=== PATIENT | male | born 1965 | race Asian ===

== ENCOUNTER → 2020-10-30 10:45 | Outpatient (CLI) | payer OTHER, SELFPAY ==
--- NOTE | ~2020-10-30 | US_ITS ---
US abdomen complete EXAMINATION: US Abdomen Complete INDICATION: Liver disease PROCEDURE: Realtime High Resolution abdomen ultrasound. COMPARISON: No prior studies for comparison FINDINGS: Gallbladder within normal limits. No gallstones, pericholecystic fluid, gallbladder wall t hickening or biliary dilatation. Common bile duct measures 3 mm. Liver echotexture is increased, consistent with fatty infiltration. There are multiple liver cysts, l argest measuring 5.5 cm.. Pancreas within normal limits. Pancreatic tail is obscured by bowel gas. Spleen is unremarkeable. Renal echotexture is within normal limits bilaterally without hydronephrosi s, contour deforming mass or renal stone. Right kidney measures 10.4 cm. Left kidney measures 12.3 cm . Visualized aspects of the aorta and IVC are not well visualized due to bowel gas. Portal vein is grady nt. No sonographic Segovia's sign indicated by the technologist. IMPRESSION: 1: Hepatic steatosis with liver cysts. Reviewed, dictated and finalized at location B.
== END ==
PROVIDERS: PCP Emergency Medicine; Visit Provider Emergency Medicine
DX: K76.9 Liver disease, unspecified (principal)
CPT/HCPCS: 76700

== ENCOUNTER 2021-02-12 09:15 | Outpatient (RCR) | payer OTHER, SELFPAY ==
[2021-01-05 12:42] VITALS: BMI 26.4
[2021-01-05 12:47] VITALS: BMI 26.4
== END 2021-03-08 12:03 | disposition home or self-care (01) ==
LOC: ANHDMC 09:15
PROVIDERS: PCP Emergency Medicine; Referring Provider Emergency Medicine; Visit Provider Emergency Medicine
DX: E11.9 Type 2 diabetes mellitus without complications (principal); Z71.89 Other specified counseling
CPT/HCPCS: 97802; G0108

== ENCOUNTER 2024-07-01 00:09 | Day surgery (SDC) | payer OTHER, SELFPAY ==
[2024-06-17 14:27] VITALS: BMI 25.0
[2024-07-01 07:00] VITALS: BP 95/43; PULSE 64; RESP 18; TEMP 36.1; O2SAT 97
[2024-07-01] MEDS: LACTATED RINGERS 1,000 ML 150 ML IV CONT (07:08)
--- NOTE | 2024-07-01 07:28 | WPDANESEPPF ---
Anes - Initial Pre Proc Eval Procedure: Operation Date: 07/01/24 08:00 Proposed Procedures p Screening Colonoscopy - Olvin Tena MD Date/Time: 07/01/24 07:28 Surgeon: Olvin Tena MD Pre Op Diagnosis: screening neoplasm of colon Patient Data Age: 59 Gender: M Height: 1.7 m Weight: 74.2 kg Last Vital Signs Temp 97 F L 07/01/24 07:00 Pulse 64 07/01/24 07:00 Resp 18 07/01/24 07:00 BP 95/43 L 07/01/24 07:00 Pulse Ox 97 07/01/24 07:00 O2 Del Method Room Air 07/01/24 07:00 Allergies Allergy/AdvReac Type Severity Reaction Status Date / Time No Known Allergies Allergy Verified 07/01/24 06:59 Home Medications Medication Instructions Recorded Confirmed Type No Home Medications 06/17/24 07/01/24 History Patient hx anesthesia problems: none Family hx anesthesia problems: none Results Review: All pre-operative results and documents have been reviewed as part of the pre-operative evaluation. [facility] Social History Social History Alcohol intake: current Drinks per week: 3 Living arrangements: with family Spiritual care concerns: No Anes - Eval Final PreProcedure Day of Procedure 07/01/24 07:28 Patient weight: normal Heart: regular rate and rhythm Lungs: clear to auscultation Airway: Mallampati scale class II Neurological: alert and oriented Last oral intake: >/= 8 hours ASA classification: II Emergent: no Anesthetic plan: proceed Anesthesia type and monitoring: general GIVS and standard monitoring Results Review: All pre-operative results and documents have been reviewed as part of the pre-operative evaluation. Informed Consent: The patient's anesthetic plan and its attendant risks and benefits were discussed with the patient/family/POA. Questions were solicited and answers provided to the satisfaction of the patient/family/POA.
--- NOTE | 2024-07-01 08:01 | PM.IMHP ---
H&P: HPI History of Present Illness Date/Time: 07/01/24 08:01 Chief Complaint: History of colon polyps Narrative: The patient has a history of colonic polyps, the last colonoscopy was more than 5 years ago Review of Systems Review of Systems: All systems reviewed & are unremarkable except as noted in HPI and below PMFSH Social History Social History Alcohol intake: current Drinks per week: 3 Living arrangements: with family Spiritual care concerns: No Meds Home Medications and Allergies Home Medications Medication Instructions Recorded Confirmed Type No Home Medications 06/17/24 07/01/24 History Allergies Allergy/AdvReac Type Severity Reaction Status Date / Time No Known Allergies Allergy Verified 07/01/24 06:59 Vital Signs Vital Signs - 24 hr 07/01/24 07:00 Temperature 97 F L Pulse Rate 64 Respiratory Rate 18 Blood Pressure 95/43 L Pulse Oximetry 97 Oxygen Delivery Room Air Exam Const: General: cooperative and healthy appearing Resp: Effort & Inspection: normal respiratory effort and able to speak in complete sentences Auscultation: clear to auscultation bilaterally Cardio: Rate: regular rate Rhythm: regular rhythm GI: Inspection: normal to inspection GI Palp: No No hepatosplenomegaly present Auscultation: normal bowel sounds Rectal Exam: deferred Skin: General skin exam: normal color Psych: Appearance: grossly normal Mental Status: mental status grossly normal Assessment and Plan Assessment and plan (1) History of colonic polyps: Code(s): Z86.0100 - Personal history of colon polyps, unspecified Status: Acute Assessment and Plan: The patient is deemed a good candidate for the procedure. Consent signed. Will proceed.
[2024-07-01 08:35] VITALS: BP 93/62; PULSE 59; RESP 12; O2SAT 98
[2024-07-01 08:45] VITALS: BP 103/65; PULSE 64; RESP 19; O2SAT 100
[2024-07-01 08:55] VITALS: BP 108/75; PULSE 60; RESP 18; O2SAT 100
== END 2024-07-01 09:04 | disposition home or self-care (01) ==
PROVIDERS: PCP Emergency Medicine; Visit Provider Internal Medicine Gastroenterology
PROC: 0DJD8ZZ Inspection of Lower Intestinal Tract, Via Natural or Artificial Opening Endoscopic (ICD-10-PCS; CPT 45378; principal; 2024-07-01 08:00)
DX: Z12.11 Encounter for screening for malignant neoplasm of colon (principal); Z86.0100 Personal history of colon polyps, unspecified
CPT/HCPCS: 45378; J2003; J2704; J7120

== ENCOUNTER 2024-12-26 00:13 | Emergency (ER) | payer OTHER, SELFPAY ==
--- NOTE | ~2024-12-26 | CT_ITS ---
Non-contrast Head CT History: Altered mental status Technique: Axial non-contrast imaging of the brain was performed. Dose reduction technique was used on this scan by utilizing automated exposure control and iterative reconstruction technique. The dose -length product (DLP) was 681.00 mGy-cm. Findings: There is no evidence of intracranial hemorrhage, mass lesion, or acute infarct. Brain par enchyma appears normal. The ventricles and subarachnoid spaces are normal in size. The calvarium ap pears normal. The visualized paranasal sinuses and mastoid air cells are clear. Impression: No significant abnormality seen. Reviewed, dictated and finalized at location . Impression: No significant abnormality seen.
[2024-12-26 00:16] VITALS: BP 98/71; PULSE 53; RESP 19; TEMP 36.9; O2SAT 97
--- OUTSIDE RECORDS SUMMARY | 2024-12-26 00:18 | XMS_ITS | Continuity of Care Document ---
Author Organization [facility] Address [address] [place] [address] [place] [address] Phone Care Team Providers Care Business Support Specialist Name Role Phone Jim Quintanilla MD Unavailable Unavailable Allergies, Adverse Reactions, Alerts Substance Reaction Status Criticality No Known Allergies Active No Inform ation Procedures Procedure Date OFFICE/OUTPATIENT VISIT, EST OFFICE/OUTPATIENT VISIT, EST PREV VISIT, EST, AGE 40-64 OFFICE/OUTPATIENT VISIT, EST PREV VISIT, EST, AGE 40-64 OFFICE/OUTPATIENT VISIT, EST OFFICE/OUTPATIENT VISIT, EST PREV VISIT, EST, AGE 40-64 OFFICE/OUTPATIENT VISIT, EST OFFICE/OUTPATIENT VISIT, EST OFFICE/OUTPATIENT VISIT, EST OFFICE/OUTPATIENT VISIT, EST OFFICE/OUTPATIENT VISIT, EST OFFICE/OUTPATIENT VISIT, EST OFFICE/OUTPATIENT VISIT, EST PREV VISIT, EST, AGE 40-64 OFFICE/OUTPATIENT VISIT, EST OFFICE/OUTPATIENT VISIT, EST PREV VISIT, EST, AGE 40-64 OFFICE/OUTPATIENT VISIT, EST OFFICE/OUTPATIENT VISIT, EST PREV VISIT, EST, AGE 40-64 OFFICE/OUTPATIENT VISIT, EST OFFICE/OUTPATIENT VISIT, EST PREV VISIT, EST, AGE 40-64 OFFICE/OUTPATIENT VISIT, EST Advance Directives Directive Yes / No Effective Date File Name No Information Encounters Encounter Description Practice Location Reason(s) For Visit Diagnoses Date Provider Providers Copied on Encounter OFFICE/OUTPA TIENT VISIT, EST [facility], [address], [place], [place], [address], [place] tel:[phone] [facility] DM (chief complaint) HLP (chief complaint) MCV (chief complaint) Type 2 diabetes mellitus without complicationsMixed hyperlipidemiaFatty liverOther abnormality of red blood cells 5 Dwight Fernandez. [address], [place], [place], [address] , [place]. tel:[phone] OFFICE/OUTPA TIENT VISIT, EST [facility], [address], [place], [place], [address], [place] tel:[phone] [facility] DM (chief complaint) HLP (chief complaint) MCV (chief complaint) Type 2 diabetes mellitus with diabetic nephropathyMixed hyperlipidemiaOther specified abnormal findings of blood chemistry 4 Dwight Fernandez. [address], [place], [place], [address] , [place]. tel:[phone] PREV VISIT, EST, AGE 40-63 [facility], [address], [place], [place], [address], [place] tel:[phone] [facility] physical (chief complaint) Encounter for general adult medical exam w abnormal findingsFatty liverMixed hyperlipidemiaObstr uctive sleep apnea hypopneaType 2 diabetes mellitus without complicationsAbnorm al weight gain 4 Dwight Fernandez. [address], [place], [place], [address] , [place]. tel:[phone] PREV VISIT, EST, AGE 40-63 [facility], [address], [place], [place], [address], [place] tel:[phone] [facility] physical (chief complaint) Type 2 diabetes mellitus without complicationsMixed hyperlipidemiaEncou nter for general adult medical exam w abnormal findingsFatty liverPrimary central sleep apnea 3 Dwight Fernandez. [address], [place], [place], [address] , [place]. tel:[phone] OFFICE/OUTPA TIENT VISIT, [facility], [address], [place], [place], [address], [place] tel:[phone] [facility] DM (chief complaint) HLP (chief complaint) Mixed hyperlipidemiaType 2 diabetes mellitus without complications 2 Dwight Fernandez. [address], [place], [place], [address] , [place]. [phone] PREV VISIT, EST, AGE 40-63 [facility], [address], [place], [place], [address], [place] tel:[phone] [facility] physical (chief complaint) Encounter for general adult medical exam w abnormal findingsHyperlipide miaType 2 diabetes mellitus with diabetic nephropathyFatty liverAllergic contact dermatitis due to plants, except food 2 Dwight Fernandez. [address], [place], [place], [address] , [place]. [phone] OFFICE/OUTPA TIENT VISIT, EST [facility], [address], [place], [place], [address], [place] tel:[phone] [facility] DM (chief complaint) HLP (chief complaint) sleep apnea1 (chief complaint) weight loss1 (chief complaint) Sleep apneaHyperlipidemia Type 2 diabetes mellitus with diabetic nephropathyAbnormal weight lossEncounter for screening for malignant neoplasm of prostate 1 Dwight Fernandez. [address], [place], [place], [address] , [place]. tel:[phone] OFFICE/OUTPA TIENT VISIT, [facility], [address], [place], [place], [address], [place] tel:[phone] [facility] fatty liver1 (chief complaint) DM (chief complaint) polycythem ia1 (chief complaint) HLP (chief complaint) sleep apnea1 (chief complaint) low bp (chief complaint) Secondary polycythemiaSleep apneaType 2 diabetes mellitus with diabetic nephropathyFatty liverHyperlipidemia HypotensionEncounte r for screening for malignant neoplasm of colon 1 Dwight Oconnell [address], [place], [place], [address] , [place]. [phone] OFFICE/OUTPA TIENT VISIT, [facility], [address], [place], [place], [address], [place] tel:[phone] [facility] sleep apnea1 (chief complaint) Sleep apnea 1 Dwight Oconnell [address], [place], [place], [address] , [place]. [phone] OFFICE/OUTPA TIENT VISIT, [facility], [address], [place], [place], [address], [place] tel:[phone] [facility] sleep apnea1 (chief complaint) Dm (chief complaint) polycythem ia1 (chief complaint) weight loss1 (chief complaint) Secondary polycythemiaSleep apneaAbnormal weight lossType 2 diabetes mellitus with diabetic nephropathy 1 Dwight Oconnell [address], [place], [place], [address] , [place]. [phone] OFFICE/OUTPA TIENT VISIT, [facility], [address], [place], [place], [address], [place] tel:[phone] [facility] DM (chief complaint) sleep apnea1 (chief complaint) HLP (chief complaint) Type 2 diabetes mellitus with diabetic nephropathySecondar y polycythemiaFatty liverSleep apneaHyperlipidemia 1 Dwight Oconnell [address], [place], [place], [address] , [place]. tel:[phone] Referring Provider: Aidan [address], [place], [place], [address]. tel:[phone] OFFICE/OUTPA TIENT VISIT, [facility], [address], [place], [address], [place] tel:[phone] [facility] polycythem ia1 (chief complaint) DM (chief complaint) HLP (chief complaint) Type 2 diabetes mellitus with diabetic nephropathyLiver diseaseHyperlipidem iaSecondary polycythemiaFatigue Oct- 1 Dwight Fernandez. [address], [place], [place], [address] , [place]. tel:[phone] Referring Provider: Jim Quintanilla, [address], [place], [place], [address]. tel:[phone] PREV VISIT, EST, AGE 40-63 [facility], [address], [place], [place], [address], [place] tel:[phone] [facility] physical (chief complaint) Encounter for general adult medical exam w abnormal findingsHyperlipide miaHyperglycemiaLiv er diseaseTinnitus, bilateralCandidiasi s Oct- 1 Dwight Fernandez. [address], [place], [place], [address] , [place]. tel:[phone] Referring Provider: Aidan [address], [place], [place], [address]. tel:[phone] OFFICE/OUTPA TIENT VISIT, EST [facility], [address], [place], [place], [address], [place] tel:[phone] [facility] HLP (chief complaint) DM (chief complaint) LFT (chief complaint) Body mass index (BMI) 30.0-30.9, adultLiver diseaseHyperlipidem iaType 2 diabetes mellitus without complications 8 Dwight Fernandez. [address], [place], [place], [address] , [place]. tel:[phone] Referring Provider: Aidan [address], [place], [place], [address]. tel:[phone] PREV VISIT, EST, AGE 40-63 [facility], [address], [place], [place], [address], [place] tel:[phone] [facility] PHysical (chief complaint) Encounter for general adult medical exam w abnormal findingsHyperlipide miaHyperglycemiaAbn ormal weight gainNevus, non-neoplastic 8 Dwight Fernandez. [address], [place], [place], [address] , [place]. [phone] Referring Provider: Aiadn [address]th [address], [place], [place], [address]. tel:[phone] OFFICE/OUTPA TIENT VISIT, EST [facility], [address], [place], [place], [address], [place] tel:[phone] [facility] HLP (chief complaint) glucose (chief complaint) vitamin D (chief complaint) Dietary surveillance and counselingOther and unspecified hyperlipidemiaMetab olic SyndromeUnspecified vitamin d deficiency 4 Dwight Fernandez. [address], [place], [place], [address] , [place]. tel:[phone] Referring Provider: Aidan Barth [address], [place], [place], [address]. tel:[phone] PREV VISIT, EST, AGE 40-63 [facility], [address], [place], [place], [address], [place] tel:[phone] [facility] physical (chief complaint) Dietary surveillance and counselingRoutine Medical ExamStreptococcal sore throatOther and unspecified hyperlipidemiaRouti ne Medical Exam 4 Dwight Fernandez. [address], [place], [place], [address] , [place]. tel:[phone] Referring Provider: Aidan Barth [address], [place], [place], [address]. tel:[phone] OFFICE/OUTPA TIENT VISIT, EST [facility], [address], [place], [place], [address], [place] tel:[phone] [facility] HLP (chief complaint) vitamin D (chief complaint) Dietary surveillance and counselingOther and unspecified hyperlipidemiaUnspe cified vitamin d deficiency 3 Dwight Fernandez. [address] [facility] [place] [facility] [address], [place], [place], [address] , [place]. [phone] Referring Provider: [facility] [place], [place], [address]. tel:[phone] PREV VISIT, EST, AGE [age] [facility], [address], [place], [place], [address], [phone] [facility] cough (chief complaint) physical (chief complaint) Dietary surveillance and counselingBronchiti s, AcuteRoutine Medical ExamOther and unspecified hyperlipidemiaRouti ne Medical Exam 2 Dwight Fernandez. [address], [facility] A, [place], [place], [address] , [place]. [phone] Referring Provider: Aidan Barth [place], [address]. tel:[phone] Family History Family Member Type Diagnosis Age At Onset Mother Problem (finding) Alive and well Brother Problem (finding) Alive and well Father Problem (finding) Alive and well Payers Payer name Insurance type Covered green party ID Authoriza timedina(s) [employer] O CI [id number] Social History Type Description Quantity Date Captured Comments Alcohol Use Details Caffeine Use Details Unknown Tobacco Use Status Current non-smoker Smoking Status Never smoker Sex Male Vital Signs Date / Time: Height Weight BMI Pulse Rate Blood Pressure Temperature Respiratory Rate Body Surface Area Head Circumference BMI percentile Pulse Ox Inhaled Ox 9:09 AM 65.75 in 166.40 lbs 27.0 6 kg/m eter (2) 73 /min 120/80 mm[Hg] 98.3 F 16 /min Chief Complaint And Reason For Visit From encounter dated '10/23/2024 09:06'. DM (chief complaint). Description: Pt has DM, which is diet controlled. His A1c and glucose are improving Pt denies any polyuria, polydipsia. HLP (chief complaint). Description: Pt has history of HLP . Pt has been working on diet and his lipid is ok now. MCV (chief complaint). Description: pt has enlarged MCV. Pt has been drinking hard liquor nightly .Pt denies any abd pain Plan Of Treatment Date Type Action Status Goal Special diet education compl eted Goal Special diet education compl eted Referral Ordered: Otolaryngology (related to Sleep apnea) ordered Referral Ordered: Physical Therapy (related to Type 2 diabetes mellitus with diabetic nephropathy) ordered Referral Referred To: Physical Therapy Ordered: Referrals: Physical Therapy. Evaluate and treat ordered Referral Ordered: SLEEP STUDY, ATTENDED ordered Referral Ordered: Otolaryngology (related to Tinnitus, bilateral) ordered Referral Ordered: Referrals: Otolaryngology. Evaluate and treat ordered Referral Ordered: US EXAM, ABDOM, COMPLETE ordered Referral Ordered: Fabian Puentes -[facility] : Surgery (related to Nevus, non-neoplastic) ordered Referral Referred To: Fabian Puentes [address] [place], [place] [id number] Ordered: Referrals: [facility]opathic [facility] Osteopathic Physicians : Surgery. Fabian Puentes. Evaluate and treat ordered Referral Ordered: COLONOSCOPY AND BIOPSY ordered History Of Present Illness Encounter Date Complaint History Of Prese nt Illness DM Pt has DM, which is diet controlled. His A1c and glucose are improving Pt denies any polyuria, polydipsia. HLP Pt has history o f HLP . Pt has been working on diet and his lipid is ok now. MCV pt has enlarged MCV. Pt has been drinking hard liquor nightly .Pt denies any abd pain MCV Pt has borderlin e high MCV. Pt has been drinking more alcohol lately DM Pt has borderlin e DM. Pt does not take metformin Pt has not been diet and exercising and he went back to [place] recently and he ate poorly and drank more alcohol as well. HLP Pt has HLP Pt peñaloza s not diet and exercising recently physical Pt needs annual physical. pt has Dm and he is diet controlled. Pt has history of HLP Pt is working on diet and exercise. Pt has sleep apnea He denies any snoring or fatigue. pt does not use cpap. Pt overall feels well. His glucose at home is around 95. physical Pt needs annual physical. Pt has borderline DM and HLP Pt has been diet controlling for above. Pt stopped metformin and crestor several months ago on his own. Pt overall feels very well. His glucose is around 88. Pt denies any other complaints Pt no long snores or feels fatigue DM Pt has DM pt nicolas es metformin daily and his glucose and A1c are very normal. Pt denies any hypoglycemia Pt denies any polyuria, polydipsia. Pt states that he checks his glucose in the morning and he sometimes skips metformin if BG less than 100. HLP Pt has HLP Pt shilo mcnamara crestor .Pt denies any myalgia. his lipid profile is ok physical Pt needs annual physical pt has DM Pt takes metformin. his glucose is around 100 Pt denies any polyuria, polydipsia Pt denies any neuropathy .Pt has HLP Pt takes crestor Pt denies any myalgia .pt worked in [employer] last week and he notices diffuse itching right arm and spreading shortly after working at [employer] last week and is spreading Pt denies any sob or shortness of breath. Pt vikram any dysphagia. Pt c/o diffuse itching Pt uses OTC steroid topical but did not help DM Pt has DM, pt ta kes metformin and his glucose is around 95. Pt denies any hypoglycemia, polyuria, polydipsia. HLP Pt has HLP .Pt t iraida crestprimitivo and his lipid is ok Pt denies any myalgia. His lipid profile is ok sleep apnea1 Pt has sleep family physician ea. Pt lost some weight and he no longer has any snoring or any fatigue. He did not do the oxygen level at night .He could not tolerate cpap. weight loss1 Pt has been diet and exercise and intentionally losing weight. He denies any nausea, vomiting GERD ,nausea, vomiting, appetite loss, early satiety, etc. Pt vikram any lower GI issue fatty liver1 Pt has fatty kristy er and high ferritin. Pt cut down alcohol and is eating healthier. Pt denies any abd pain or headache polycythemia pt no longer has high hemoglobin and CEASAR is ok. DM Pt has DM ,Pt ta kes metformin and amaryl and he is very motivated with diet and exercise and weight control and he is doing DM education class. he is doing well. His glucose is around 80s. He denies any hypoglycemia. he feels much better overall . HLP Pt has HLP Pt shilo mcnamara crestor and his lipid profile is ok .Pt denies any myalgia sleep apnea1 Pt has mild slee p apnea and oxygen desaturation at night. .he could not tolerate cpap. He returned the cpap He has not followed up with ENT .he states that he feels much better now with better glucose control He denies any headache or fatigue or snoring low bp Pt has borderlin e low bp with losartan. Pt denies any dizziness sleep apnea Pt has mild slee p apnea but with significant oxygen level desat at night. He spend about 16% of sleeping time with oxygen level less than 88 % Pt feels fatigue with cloudy brain during the day time. I told him to make malika with ENT/sleep to discuss above and he has not done that yet. he also returned the CPAP machine on his own. He states that he feels worse with cpap after using it for 2-3 nights and he woke up feeling more cloudy brained with dizziness. sleep apnea Pt has sleep family physician ea with oxygen desaturation. pt has chronic fatigue. Pt received a letter from insurance about approval for the CPAP. Pt states that he has not heard [facility] regarding CPAP set up yet . Dm Pt has DM. Pt ta kes metformin and amaryl and his glucose is consistently around 100. Pt denies any hypoglycemia. Pt denies any neuropathy. Pt feels well overall. polycythemia1 Pt has polycythe nolberto with high ferritin. Pt denies any bone pain weight loss1 Pt has been diet and exercising and intentionally losing weight .Pt denies any appetite loss, nausea, vomiting, early satiety, diarrhea, change of bowel, etc . DM Pt has DM with p roteinuria. Pt started metformin and amaryl last month and he states dontrell this glucose is consistently around 95-100. Pt denies any hypoglycemia. Pt also changed his diet as well. Pt has DM education class scheduled next month. PT denies any vision change. PT denies any neuropathy. Pt takes losartan. His bp is around 120/60 at home. Pt denies any dry cough. pt states that he feels less fatigue and overall better since BG lower sleep apnea1 Pt has mild slee p apnea with significant oxygen desaturation at night. Pt feels fatigue. Pt has mild polycythemia and high ferritin. Pt has fatty liver with cysts. Pt denies any abd pian or jaundice. Pt drinks alcohol socially HLP Pt tolerating cr estor ok Pt denies any myalgia. polycythemia1 Pt has polycythe nolberto and also high ferritin. Pt denies any family history of hemochromatosis. Pt does c/o feeling fatigue and snoring loudly at night HLP Pt has HLP, whic h is worse than in the past. Pt did not want to try statin in the past. he has been eating poorly. DM Pt has full blow n Dm currently. pt c/o feeling irritable, polyuria, polydipsia and worsening vision lately. Pt has not been back to see me for more than 2 years. He was pre-diabetic in the past but he did not want any metformin and he has lost in follow up until recently. Pt also has proteinuria. pt c/o intermittent bilateral foot numbness and tingling Pt denies any claudication or cold extremity or toe discoloration physical Pt needs annual physical Pt has history of HLP ,borderline Dm and high LFT. Pt denies any abd pain. Pt denies any jaundice Pt never did follow up lab and ultrasound Pt rarely drinks alcohol. Pt denies any GI symptoms or weight loss and any bleeding.. Pt also c/o itching and slightly white discharge around jaswinder penis and foreskin for several days. Pt denies any redness or warmth or any penile discharge. Pt also notices mild tinnitus both ears. Pt denies any hearing loss. Pt denies any ear pain. Pt denies any sinus symptoms. HLP Pt has mild high HLP. Pt has high TC and TG. Pt does not want medication DM Pt has high gluc ose and his A1c is 6.4. pt denies any polyuria, polydipsia. Pt also does not want to take meds Pt denies any neuropathy symptoms LFT Pt has mildly hi gh LFt pt denies any abdominal pain Pt rarely drinks alcohol PHysical Pt needs annual physical. Pt feels well. Pt denies any chest pain or sob. Pt has history of HLP and high glucose. Pt denies any polyuria, polydipsia. Pt denies any urinary symptoms. Pt gained 20 pounds since 4 years ago. pt is not very active Pt denies any gi issue Pt wants physical Instructions Date Instruction Additional Infor connorion Special diet education Related t o Body mass index (BMI) 30.0-30.9, adult Increase physical activity Relat ed to Liver disease Weight management Related to Kristy er disease Weight management Related to Enc ounter for general adult medical exam w abnormal findings Special diet education Related t o Body mass index (BMI) 30.0-30.9, adult Increase physical activity Relat ed to Encounter for general adult medical exam w abnormal findings Decrease caloric intake Related to Dietary surveillance counseling Dietary counseling Related to Di etary surveillance counseling Decrease caloric intake Related to Dietary surveillance counseling Dietary counseling Related to Di etary surveillance counseling Dietary counseling Related to Di etary surveillance counseling Decrease caloric intake Related to Dietary surveillance counseling Dietary counseling Related to Di etary surveillance counseling Decrease caloric intake Related to Dietary surveillance counseling Assessments Type Assessment Date assessment Type 2 diabetes mellitus without complications assessment Mixed hyperlipidemia assessment Fatty liver assessment Other abnormality of red blood c ells Mental Status Date Cognitive Assessment Orientation - [place] ed to time, place, person, situation.
--- OUTSIDE RECORDS SUMMARY | 2024-12-26 00:18 | XMS_ITS | Clinical Summary ---
Author Organization [facility] Address [address] [place] [address] Care Team Providers Care Medical Program Specialist Name Role Phone Jim Quintanilla MD Primary Care Provider [phone] Source Comments [facility],non-owned Affiliates and Associated Physician Practices is amultiple site organization consisting of ambulatory clinics and hospital sitesin [place], [place], [place] and [place]. This disclosure is being madepursuant to the Care Everywhere program and may not contain all information available regarding this patient. Last updated 18.[facility] Allergies No known active allergies Medications * Be aware that medications may not be up to date on this document. Alwaysverify current medications with the patient. No known medications Social History Tobacco Use Types Packs/Day Years Used Date Smoking Tobacco: Never Smokeless Tobacco: Never Sex and Gender Information Value Date Recorded Sex Assigned at Not on file Legal Sex Male 6:04 PM CDT Gender Identity Not on file Sexual Orientation Not on file Last Filed Vital Signs Vital Sign Reading Time Taken Comments Blood Pressure 126/84 02/08/2018 9:03 AM CDT Pulse 63 02/08/2018 9:03 AM CDT Temperature 36.6 C (97.9 F) 02/08/2018 9:03 AM CDT Respiratory Rate 16 02/08/2018 9:03 AM CDT Oxygen Saturation 96% 02/08/2018 9:03 AM CDT Inhaled Oxygen Concentration - - Weight 87.1 kg (192 lb) 02/08/2018 9:03 AM CDT Height 167.6 cm (5' 6 ) 02/08/2018 9:03 AM CDT Body Mass Index 30.99 02/08/2018 9:03 AM CDT Plan of Treatment Health Maintenance Due Date Last Done Comments COLOGUARD (AGES 45-75) - COL ON CA SCREENING 1964 COLON MONITORING 1964 COLONOSCOPY - COLON CA SCREENING 1964 CT COLONOGRAPHY - COLON CA SCREENING 1964 Colorectal Cancer Screening 1964 FIT - COLON CA SCREENING 1964 FLEX SIG - COLON CA SCREENING 1964 LIPID TESTING 1964 HIV SCREENING 1979 HEPATITIS C SCREENING 05/05/1982 DTAP/TDAP/TD VACCINES (1 - Tdap) 1983 PNEUMOCOCCAL VACCINE 50+ (1 of 1 - PCV) 2014 ZOSTER VACCINE (1 of 2) 2014 SCREENING FOR DIABETES 04/18/2017 COVID-19 VACCINE (1 - 2023-2 5 season) 2024 DEPRESSION SCREENING 08/07/2024 INFLUENZA VACCINE (Season Ended) 2025 Respiratory Syncytial Virus (RSV) Vaccine Pt: or over 60 yrs (1 - 1-dose 75+ series) 2039 HEPATITIS B VACCINE Aged Out No longe r eligible based on patient's age to complete this topic HIB VACCINE Aged Out No longer eligi ble based on patient's age to complete this topic HPV VACCINE Aged Out No longer eligi ble based on patient's age to complete this topic MENINGOCOCCAL (Group B) VACC INE SHARED DECISION-MAKING Aged Out No longer eligibl e based on patient's age to complete this topic MENINGOCOCCAL GROUPS A/C/Y/W VACCINE Aged Out No longer eligible b ased on patient's age to complete this topic Insurance [employer] Care Teams Medical Program Specialist Relationship Specialty Start Date End Date iJm Quintanilla MD [address] [facility] [address] [place] [address] PCP - General Family Medicine 04/18/17
--- OUTSIDE RECORDS SUMMARY | 2024-12-26 01:31 | XMS_ITS | Clinical Summary ---
Author Organization [facility] Address [address] [place] [address] Care Team Providers Care Steward/Stewardess Third Name Role Phone Jim Quintanilla MD Primary Care Provider [phone] Source Comments [facility],non-owned Affiliates and Associated Physician Practices is amultiple site organization consisting of ambulatory clinics and hospital sitesin [place], [place] and [place]. This disclosure is being madepursuant to the Care Everywhere program and may not contain all information available regarding this patient. Last updated 18.[facility] Allergies No known active allergies Medications * [...] patient's age to complete this topic Insurance [employer] Care Teams Steward/Stewardess Third Relationship Specialty Start Date End Date Jim Quintanilla MD [address] [facility] [address] [place] [address] PCP - General Family Medicine 04/18/17
--- OUTSIDE RECORDS SUMMARY | 2024-12-26 01:31 | XMS_ITS | Continuity of Care Document ---
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 [address], [place], [place], [address] , [place]. tel:[phone] OFFICE/OUTPA TIENT VISIT, EST [facility], [address], [place], [place], [address], [place] tel:[phone] [facility] DM (chief complaint) HLP (chief complaint) MCV (chief complaint) Type 2 diabetes mellitus with diabetic nephropathyMixed hyperlipidemiaOther specified abnormal findings of blood chemistry 4 Dwight Fernandez. [address], [place], [place], [address] , [place]. tel:[phone] PREV VISIT, EST, AGE 40-64 [facility], [address], [place], [place], [address], [place] tel:[phone] [facility] Medicine physical (chief complaint) Encounter for general adult medical exam w abnormal findingsFatty liverMixed hyperlipidemiaObstr uctive sleep apnea hypopneaType 2 diabetes mellitus without complicationsAbnorm al weight gain 4 Dwight Fernandez. [address], [place], [place], [address] , [place]. tel:[phone] PREV VISIT, EST, AGE 40-64 [facility], [address], [place], [place], [address], [place] tel:[phone] [facility] Medicine physical (chief complaint) Type 2 diabetes mellitus without complicationsMixed hyperlipidemiaEncou nter for general adult medical exam w abnormal findingsFatty liverPrimary central sleep apnea 3 Dwight Fernandez. [address], [place], [place], [address] , [place]. tel:[phone] OFFICE/OUTPA TIENT VISIT, [facility], [address], [place], [place], [address], [place] tel:[phone] [facility] DM (chief complaint) HLP (chief complaint) Mixed hyperlipidemiaType 2 diabetes mellitus without complications 2 Dwight Fernandez. [address], [place], [place], [address] , [place]. [phone] PREV VISIT, EST, AGE 40-64 [facility], [address], [place], [place], [address], [place] tel:[phone] [facility] physical (chief complaint) Encounter for general adult medical exam w abnormal findingsHyperlipide miaType 2 diabetes mellitus with diabetic nephropathyFatty liverAllergic contact dermatitis due to plants, except food 2 Dwight Fernandez. [address], [place], [place], [address] , [place]. [phone] OFFICE/OUTPA TIENT VISIT, EST [facility], [address], [place], [place], [address], [place] tel:[phone] [facility] DM (chief complaint) HLP (chief complaint) sleep apnea1 (chief complaint) weight loss1 (chief complaint) Sleep apneaHyperlipidemia Type 2 diabetes mellitus with diabetic nephropathyAbnormal weight lossEncounter for screening for malignant neoplasm of prostate 1 Dwight Fernandez. [address], [place], [place], [address] , [place]. tel:[phone] OFFICE/OUTPA TIENT VISIT, [facility], [address], [place], [place], [address], [place] tel:[phone] [facility] fatty liver1 (chief complaint) DM (chief complaint) polycythem ia1 (chief complaint) HLP (chief complaint) sleep apnea1 (chief complaint) low bp (chief complaint) Secondary polycythemiaSleep apneaType 2 diabetes mellitus with diabetic nephropathyFatty liverHyperlipidemia HypotensionEncounte r for screening for malignant neoplasm of colon 1 Dwight Oconnell [address], [place], [place], [address] , [place]. [phone] OFFICE/OUTPA TIENT VISIT, [facility], [address], [place], [place], [address], [place] tel:[phone] [facility] sleep apnea1 (chief complaint) Sleep apnea 1 Dwight Oconnell [address], [place], [place], [address] , [place]. tel:[phone] OFFICE/OUTPA TIENT VISIT, [facility], [address], [place], [place], [address], [place] tel:[phone] [facility] sleep apnea1 (chief complaint) Dm (chief complaint) polycythem ia1 (chief complaint) weight loss1 (chief complaint) Secondary polycythemiaSleep apneaAbnormal weight lossType 2 diabetes mellitus with diabetic nephropathy 1 Dwight Oconnell [address], [place], [place], [address] , [place]. [phone] OFFICE/OUTPA TIENT VISIT, [facility], [address], [place], [place], [address], [place] tel:[phone] [facility] DM (chief complaint) sleep apnea1 (chief complaint) HLP (chief complaint) Type 2 diabetes mellitus with diabetic nephropathySecondar y polycythemiaFatty liverSleep apneaHyperlipidemia 1 Dwight Oconnell [address], [place], [place], [address] , [place]. tel:[phone] Referring Provider: Aidan Barth [address], [place], [place], [address]. tel:[phone] OFFICE/OUTPA TIENT VISIT, [facility], [address], [place], [address], [place] tel:[phone] [facility] polycythem ia1 (chief complaint) DM (chief complaint) HLP (chief complaint) Type 2 diabetes mellitus with diabetic nephropathyLiver diseaseHyperlipidem iaSecondary polycythemiaFatigue Oct- 1 Dwight Fernandez. [address], [place], [place], [address] , [place]. tel:[phone] Referring Provider: Jim Quintanilla, [address]ll[address], [place], [place], [address]. tel:[phone] PREV VISIT, EST, AGE 40-64 [facility], [address], [place], [place], [address], [place] tel:[phone] [facility] physical (chief complaint) Encounter for general adult medical exam w abnormal findingsHyperlipide miaHyperglycemiaLiv er diseaseTinnitus, bilateralCandidiasi s Oct- 1 Dwight Fernandez. [address], [place], [place], [address] , [place]. tel:[phone] Referring Provider: Aidan Barth [address], [place], [place], [address]. tel:[phone] OFFICE/OUTPA TIENT VISIT, EST [facility], [address], [place], [place], [address], [place] tel:[phone] [facility] HLP (chief complaint) DM (chief complaint) LFT (chief complaint) Body mass index (BMI) 30.0-30.9, adultLiver diseaseHyperlipidem iaType 2 diabetes mellitus without complications 8 Dwight Fernandez. [address], [place], [place], [address] , [place]. tel:[phone] Referring Provider: Aidan Barth [address], [place], [place], [address]. tel:[phone] PREV VISIT, EST, AGE 40-64 [facility], [address], [place], [place], [address], [place] tel:[phone] [facility] PHysical (chief complaint) Encounter for general adult medical exam w abnormal findingsHyperlipide miaHyperglycemiaAbn ormal weight gainNevus, non-neoplastic 8 Dwight Fernandez. [address], [place], [place], [address] , [place]. tel: [phone] Referring Provider: Aidan [address]th [address], [place], [place], [address]. tel:[phone] OFFICE/OUTPA TIENT VISIT, EST [facility], [address], [place], [place], [address], [place] tel:[phone] [facility] HLP (chief complaint) glucose (chief complaint) vitamin D (chief complaint) Dietary surveillance and counselingOther and unspecified hyperlipidemiaMetab olic SyndromeUnspecified vitamin d deficiency 4 Dwight Fernandez. [address], [place], [place], [address] , [place]. tel:[phone] Referring Provider: Aidan Barth [address], [place], [place], [address]. tel:[phone] PREV VISIT, EST, AGE 40-64 [facility], [address], [place], [place], [address], [place] tel:[phone] [facility] physical (chief complaint) Dietary surveillance and counselingRoutine Medical ExamStreptococcal sore throatOther and unspecified hyperlipidemiaRouti ne Medical Exam 4 Dwight Fernandez. [address], [place], [place], [address] , [place]. tel:[phone] Referring Provider: Aidan Barth [address], [place], [place], [address]. tel:[phone] OFFICE/OUTPA TIENT VISIT, EST [facility], [address], [place], [place], [address], [place] tel:[phone] [facility] HLP (chief complaint) vitamin D (chief complaint) Dietary surveillance and counselingOther and unspecified hyperlipidemiaUnspe cified vitamin d deficiency 3 Dwight Fernandez. [address] [facility] [address], [place], [place], [address] , [place]. [phone] Referring Provider: [facility] [address], [place], [address]. tel:[phone] PREV VISIT, EST, AGE 40-64 [facility], [address], [place], [place], [address], [phone] [facility] cough (chief complaint) physical (chief complaint) Dietary surveillance and counselingBronchiti s, AcuteRoutine Medical ExamOther and unspecified hyperlipidemiaRouti ne Medical Exam 2 Dwight Fernandez. [address], [facility] [address], [place], [place], [address] , [place]. tel:[phone] Referring Provider: Aidan Barth [place], [address]. tel:[phone] Family History Family Member Type Diagnosis Age At Onset Mother Problem (finding) Alive and well Brother Problem (finding) Alive and well Father Problem (finding) Alive and well Payers Payer name Insurance type Covered libertarian ID Authoriza timedina(s) [employer] O CI [id number] Social History Type Description Quantity Date Captured [...] non-neoplastic) ordered Referral Referred To: Fabian Puentes 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 Pt lost some weight and he [...] with dizziness. 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 pt has chronic fatigue. Pt received a letter from insurance about approval for the CPAP. Pt states that he has not heard [facility] regarding CPAP set up yet . [...] Weight management Related to Kristy er disease Special diet education Related t o Body mass index (BMI) 30.0-30.9, adult Increase physical activity Relat ed to Encounter for general adult medical exam w abnormal findings Weight management Related to Enc ounter for general adult medical exam w abnormal findings Dietary counseling Related to Di etary surveillance [...] Mental Status Date Cognitive Assessment Orientation - Indiahoma ed to time, place, person, situation.
[2024-12-26 01:37] LABS: Glucose Point of Care 142 mg/dl (65-105)
--- NOTE | 2024-12-26 01:38 | ED.GENADULT ---
HPI - General Adult General Chief complaint: Alcohol Stated complaint: intoxication Time Seen by Provider: 12/26/24 01:22 History of Present Illness HPI narrative: 59-year-old male presented to the emergency department for evaluation for alcohol intoxication. 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 They also state that he often does drink this heavily. After patient went home he began feeling poorly and called his students back and they brought him to the emergency department. Upon arrival to the emergency department patient is heavily intoxicated. Patient states he feels called but denies any other complaints. Patient denies any complaint of pain. Patient has no external signs of injury. Patient is reportedly a diabetic but patient's blood sugar on arrival was 142 Related Data Home Medications ?Medication ?Instructions ?Recorded ?Confirmed ?Last Taken ?Type No Home Medications 06/17/24 07/01/24 Unknown History Allergies Allergy/AdvReac Type Severity Reaction Status Date / Time No Known Allergies Allergy Verified 12/26/24 00:13 Review of Systems Review of Systems: All systems reviewed & are unremarkable except as noted in HPI and below [facility] Social History Social History Alcohol intake: current Drinks per week: 3 Living arrangements: with family Spiritual care concerns: No Exam Narrative: APPEARANCE: Intoxication appearing HEAD: normocephalic, atraumatic. EYES: PERRLA/EOMI, conjunctivae clear. NOSE: Normal no drainage EARS:TMS clear with good light reflex. THROAT: Pharynx clear, no exudate. NECK: Supple. No adenopathy, no masses. RESPIRATORY: Airway patent, respirations nonlabored. Clear to auscultation bilaterally, no rales, rhonchi, wheezing. CARDIOVASCULAR: Regular rate and rhythm without murmurs rubs or gallops. ABDOMINAL: Soft, nontender, nondistended, normal bowel sounds MUSCULOSKELETAL: Moves all extremities. Strength/ROM intact, No edema, No calf tenderness. NEURO: Alert. Cranial nerves II through XII intact. Good gait. Good coordination SKIN: Warm, dry. Normal Color Course Vital Signs Vital signs: Vital Signs Temperature 98.5 F 12/26/24 00:16 Pulse Rate 53 L 12/26/24 00:16 Respiratory Rate 19 12/26/24 00:16 Blood Pressure 98/71 L 12/26/24 00:16 Pulse Oximetry 97 12/26/24 00:16 Oxygen Delivery Room Air 12/26/24 00:16 Temperature 98.5 F 12/26/24 00:16 Pulse Rate 67 12/26/24 04:21 Respiratory Rate 16 12/26/24 04:21 Blood Pressure 107/70 12/26/24 04:21 Pulse Oximetry 97 12/26/24 04:21 Oxygen Delivery Room Air 12/26/24 00:16 Medical Decision Making MDM Narrative Medical decision making narrative: 59-year-old male presenting to the emergency department for evaluation for alcohol intoxication. Patient is afebrile but does have a leukocytosis of 10.6 and hemoglobin of 16.1. Patient's has no acute abnormalities on his CMP including a normal AST ALT and alk-phos. Patient's blood alcohol was 59. Head CT was negative for acute intracranial abnormality. After rehydration with 1 L of lactated Ringer's patient states he does feel significantly improved. Patient states he no longer feels chilled. Patient suspects that he did not have enough food to eat prior to the consumption of the alcohol. Patient was able to ambulate in the emergency department without any distress. Patient feels comfortable with the plan for discharge home. Patient declined to have the COVID and urinalysis done and preferred to be discharged home stating he felt improved. Differential Diagnosis Differential Diagnosis: CVA, TIA, COVID, RSV, influenza, urinary traction, subarachnoid hemorrhage, subdural hematoma, alcohol intoxication Vital Signs Vital Signs: Vital Signs Temperature 98.5 F 12/26/24 00:16 Pulse Rate 53 L 12/26/24 00:16 Respiratory Rate 19 12/26/24 00:16 Blood Pressure 98/71 L 12/26/24 00:16 Pulse Oximetry 97 12/26/24 00:16 Oxygen Delivery Room Air 12/26/24 00:16 Temperature 98.5 F 12/26/24 00:16 Pulse Rate 67 12/26/24 04:21 Respiratory Rate 16 12/26/24 04:21 Blood Pressure 107/70 12/26/24 04:21 Pulse Oximetry 97 12/26/24 04:21 Oxygen Delivery Room Air 12/26/24 00:16 Lab Data Lab results reviewed: Yes I reviewed the patient's lab results. 12/26/24 02:08 12/26/24 02:08 Labs: Lab Results 05/22/25 05/22/25 Range/Units 01:34 02:08 WBC 10.6 H (4.5-10.0) K/mm3 RBC 4.83 (4.6-6.20) M/mm3 Hgb 16.1 (14.0-18.0) g/dL Hct 49.2 (42.0-52.0) % MCV 101.9 H (80-100) fl MCH 33.3 (26-34) pg MCHC 32.7 (32-36) g/dl RDW 12.4 (11.5-14.5) % Plt Count 155 (150-375) k/mm3 MPV 9.7 (7.4-10.4) fl Immature Gran % (Auto) 0.3 (0-0.5) % Neut % (Auto) 88.1 H (45.5-73.1) % Lymph % (Auto) 8.7 L (18.3-44.2) % [place] % (Auto) 2.7 (2.6-8.5) % Eos % (Auto) 0.0 (0-4.4) % Baso % (Auto) 0.2 (0.2-1.2) % Lymph # (Auto) 0.92 (0.9-3.2) K/mm3 [place] # (Auto) 0.3 (0.1-0.6) K/mm3 Eos # (Auto) 0.0 (0-0.3) K/mm3 Baso # (Auto) 0.0 (0.0-0.1) K/mm3 Abs Immat Gran (auto) 0.03 (0.00-0.031) K/mm3 Absolute Neuts (auto) 9.4 H (1.3-6.7) K/mm3 Absolute Nucleated RBC 0.000 (0.0-0.012) K/mm3 Nucleated RBC % 0.0 (0.0-0.2) % Sodium 142 (137-145) mmol/L Potassium 4.5 (3.4-5.0) mmol/L Chloride 106 (98-107) mmol/L Carbon Dioxide 27 (22-30) mmol/L Anion Gap 9 (4-12) mmol/L BUN 20 (9-20) mg/dL Creatinine 0.87 (0.7-1.3) mg/dL Estim Creat Clear Calc 74 ml/min Estimated GFR > 60 (59 - ) Glucose 133 H (65-110) mg/dL POC Capillary Glucose 142 H (65-105) mg/dl Calcium 9.0 (8.4-10.2) mg/dL Total Bilirubin 0.4 (0.2-1.3) mg/dL AST 32 (17-59) U/L ALT 29 (6-50) U/L Alkaline Phosphatase 69 (38-126) U/L Total Protein 7.0 (6.3-8.2) g/dL Albumin 4.5 (3.5-5.1) g/dL Ethyl Alcohol 59 (<10) mg/dL Imaging Data Radiologist's impression: Overnight read CT head impression: Brain: No hemorrhage, hydrocephalus, mass effect or herniation. Bones: Unremarkable Discharge Plan Discharge Clinical Impression: Alcoholic intoxication Patient Disposition: Home Condition: Stable Instructions: Antibiotic Form, Alcohol Intoxication (ED) Additional Instructions: Drink plenty of fluids. Avoid heavy alcohol intoxication. Have close follow-up with your primary care physician. Patient Language: Georgian Prescriptions: No Action No Home Medications Follow-up/Referrals: Jim Quintanilla MD [Primary Care Provider] -
--- NOTE | 2024-12-26 01:49 | PC.NURSE ---
Pt presents to ED due to ETOH. Pt placed on monitor and storage bin tender and cont. pulse oximeter. Refer to MAR
[2024-12-26] MEDS: LACTATED RINGERS 1,000 ML 999 ML IV CONT (02:10)
[2024-12-26 02:15] LABS: Basophils Percent Auto 0.2 % (0.2-1.2); Hematocrit 49.2 % (42.0-52.0); Hemoglobin 16.1 g/dL (14.0-18.0); Immature Granulocyte Absolute 0.03 K/mm3 (0.00-0.031); Immature Granulocyte Percent A 0.3 % (0-0.5); Lymphocytes Absolute Auto 0.92 K/mm3 (0.9-3.2); Lymphocytes Percent Auto 8.7 % (18.3-44.2); Mean Corpuscular HGB Conc 32.7 g/dl (32-36); Mean Corpuscular Hemoglobin 33.3 pg (26-34); Mean Corpuscular Volume 101.9 fl (80-100); Mean Platelet Volume 9.7 fl (7.4-10.4); Monocytes Absolute Auto 0.3 K/mm3 (0.1-0.6); Monocytes Percent Auto 2.7 % (2.6-8.5); Neutrophils Absolute Auto 9.4 K/mm3 (1.3-6.7); Neutrophils Percent Auto 88.1 % (45.5-73.1); Platelet Count Result 155 k/mm3 (150-375); Red Blood Count 4.83 M/mm3 (4.6-6.20); Red Cell Distribution Width 12.4 % (11.5-14.5); White Blood Count 10.6 K/mm3 (4.5-10.0)
[2024-12-26 02:25] LABS: Alanine Aminotransferase 29 U/L (6-50); Albumin Level 4.5 g/dL (3.5-5.1); Alkaline Phosphatase 69 U/L (38-126); Anion Gap 9 mmol/L (4-12); Aspartate Amino Transferase 32 U/L (17-59); Bilirubin,Total 0.4 mg/dL (0.2-1.3); Blood Urea Nitrogen 20 mg/dL (9-20); Carbon Dioxide 27 mmol/L (22-30); Chloride 106 mmol/L (98-107); Estimated CRCL calculation 74 ml/min; Estimated Glomerular Filt Rate > 60; Ethanol 59 mg/dL (<10); Glucose 133 mg/dL (65-110); Potassium 4.5 mmol/L (3.4-5.0); Sodium 142 mmol/L (137-145)
[2024-12-26 04:21] VITALS: BP 107/70; PULSE 67; RESP 16; O2SAT 97
== END 2024-12-26 04:30 | disposition home or self-care (01) ==
PROVIDERS: Emergency Provider Emergency Medicine; PCP Emergency Medicine
DX: F10.129 Alcohol abuse with intoxication, unspecified (principal); E11.9 Type 2 diabetes mellitus without complications; Y90.2 Blood alcohol level of 40-59 mg/100 ml
CPT/HCPCS: 36415; 70450; 80053; 82077; 82948; 85025; 96360; 99284; J7120